=== PATIENT | male | born 1965 | race Caucasian/White ===

== ENCOUNTER 2017-04-12 14:56 | Emergency (ER) | payer MEDICAID ==
[~2017-04-12] VITALS: Ht 175.3 cm; Wt 141.0 kg
[~2017-04-12 14:56] MED LIST: ALBU6.7H IH; P20 PO
[2017-04-12] MEDS ORDERED: BACITRACIN ZINC OINT UDPKT TOP ONE (16:45)
[2017-04-12] MEDS ORDERED: HYDROCODONE/ACETAMINOPHEN 5/325MG TABLET PO ONE (16:45)
[2017-04-12 16:49] VITALS: BP 113/92
[2017-04-17] MEDS ORDERED: ALBU18HF2 IH (15:51)
== END 2017-04-12 18:15 | disposition home or self-care (01) ==
LOC: ER 15:42
DX: S80.821A Blister (nonthermal), right lower leg, initial encounter (principal); W01.0XXA Fall on same level from slipping, tripping and stumbling without subsequent striking against object, initial encounter; Y93.89 Activity, other specified; Y92.89 Other specified places as the place of occurrence of the external cause; Z72.0 Tobacco use
CPT/HCPCS: 73590; 99284

== ENCOUNTER 2017-06-27 07:47 | Emergency (ER) | payer MEDICAID ==
[~2017-06-27] VITALS: Ht 175.3 cm; Wt 141.0 kg
[~2017-06-27 07:47] MED LIST changes: +ALBU18HF2 IH
[2017-06-27 08:34] VITALS: BP 122/59
[2017-06-27 11:32] LABS: CLARITY URINE CLOUDY (CLEAR); COLOR URINE YELLOW (YELLOW); KETONES URINE NEGATIVE (NEGATIVE); LEUKOCYTE ESTERASE URINE 3+ (NEGATIVE); NITRITE URINE POSITIVE (NEGATIVE); OCCULT BLOOD URINE 3+ (NEGATIVE); PH URINE 5.5 (4.5-8.0); PROTEIN URINE 1+ (NEGATIVE); SPECIFIC GRAVITY URINE 1.017 (1.005-1.030); UROBILINOGEN URINE 0.2 E.U./dL (0.2-1.0)
== END 2017-06-27 12:01 | disposition home or self-care (01) ==
LOC: ER 08:15
DX: N39.0 Urinary tract infection, site not specified (principal); H11.31 Conjunctival hemorrhage, right eye; K74.60 Unspecified cirrhosis of liver; I10 Essential (primary) hypertension; F17.210 Nicotine dependence, cigarettes, uncomplicated; J45.909 Unspecified asthma, uncomplicated
CPT/HCPCS: 81003; 87077; 87086; 87186; 99284; Z7610

== ENCOUNTER 2017-12-25 15:37 | Emergency (ER) | payer MEDICAID ==
[~2017-12-25] VITALS: Ht 175.3 cm; Wt 146.0 kg
[2017-12-25] MEDS ORDERED: PREDNISONE 20MG TABLET PO STA (19:18)
[2017-12-25] MEDS ORDERED: ALBUTEROL (0.083%) 2.5MG/3ML NEB HHN STA (19:18)
[2017-12-25] MEDS ORDERED: IPRATROPIUM BROMIDE (0.02%) 0.5MG/2.5ML NEB HHN STA (19:18)
[2017-12-25 21:02] VITALS: BP 140/72
== END 2017-12-25 21:05 | disposition home or self-care (01) ==
LOC: ER 15:37
DX: J45.901 Unspecified asthma with (acute) exacerbation (principal); I10 Essential (primary) hypertension; Z87.19 Personal history of other diseases of the digestive system
CPT/HCPCS: 94640; 99283; J7512; J7611; Z7610

== ENCOUNTER 2018-04-03 10:54 | Emergency (ER) | payer MEDICAID ==
[~2018-04-03] VITALS: Ht 175.3 cm; Wt 146.0 kg
[2018-04-03] MEDS ORDERED: HYDROCODONE/ACETAMINOPHEN 5/325MG TABLET PO ONE (16:00)
[2018-04-03] MEDS ORDERED: IBUPROFEN 600MG TABLET PO ONE (16:00)
[2018-04-03 16:16] VITALS: BP 126/64
== END 2018-04-03 18:17 | disposition home or self-care (01) ==
LOC: ER 12:03
DX: S90.32XA Contusion of left foot, initial encounter (principal); S90.02XA Contusion of left ankle, initial encounter; I10 Essential (primary) hypertension; J45.909 Unspecified asthma, uncomplicated; K76.9 Liver disease, unspecified; W22.8XXA Striking against or struck by other objects, initial encounter; Y93.89 Activity, other specified; Y92.018 Other place in single-family (private) house as the place of occurrence of the external cause
CPT/HCPCS: 73610; 73630; 99283